=== PATIENT | male | born 1985 | race Caucasian/White ===

== ENCOUNTER 2024-09-18 12:03 | Emergency (ER) | payer BC ==
[2024-09-18] MEDS: Fluorescein 1 MG Ophth Strip EYERT ONE (12:14)
[2024-09-18] MEDS: Proparacaine 0.5% Ophth Soln 15 ML Bottle EYERT PRN (12:14)
[2024-09-18] MEDS: Dexamethasone/Neomycin/Polymyxin B Ophth Oint 3.5 GM Tube EYERT SCH (12:29)
[2024-09-18] MEDS ORDERED: Dexamethasone/Neomycin/Polymyxin B Ophth Susp 5 ML Bottle EYERT SCH (13:00)
== END 2024-09-18 12:40 | disposition home or self-care (01) ==
LOC: VM.ED 12:03
DX: H10.31 Unspecified acute conjunctivitis, right eye (principal)
CPT/HCPCS: 99283; A9270-GY; J3490